=== PATIENT | female | born 1950 | race Caucasian/White ===

== ENCOUNTER 2018-05-15 18:19 | Emergency (ER) | payer MEDICARE, MEDICAID ==
[2018-05-15] MEDS ORDERED: ASPIRIN 81 MG TABLET, CHEWABLE PO ONE (19:30)
[2018-05-15] MEDS ORDERED: FUROSEMIDE INJ/PF 20 MG/2 ML SDV IV ONE (19:31)
--- NOTE | 2018-05-15 19:31 | ER Document Report ---
ED Medical Screen (RME) - General Chief Complaint: Cough Stated Complaint: COUGH Time Seen by Provider: 05/15/18 19:24 Notes: 68 years old female presents today with a day history of progressive increasing shortness of breath and coughing. Largely dry cough. Also noted swelling of the lower extremity. On examination having both inspiratory and expiratory Rales throughout the lung field particularly lower lung field. TRAVEL OUTSIDE OF THE [place] IN LAST 30 DAYS: No - Related Data Allergies/Adverse Reactions: amyl nitrite Allergy (Verified 08/17/15 22:48) Iodinated Contrast- Oral and IV Dye Allergy (Verified 08/17/15 22:48) sulfite Allergy (Verified 08/17/15 22:48) Past Medical History - Past Medical History Cardiac Medical History: Reports: Hx Congestive Heart Failure, Hx Heart Attack Pulmonary Medical History: Reports: Hx Asthma Renal/ Medical History: Denies: Hx Peritoneal Dialysis Musculoskeltal Medical History: Reports Hx Arthritis Past Surgical History: Reports: Hx Hysterectomy - Immunizations Hx Diphtheria, Pertussis, Tetanus Vaccination: Yes Physical Exam - Vital signs Vitals: Temp Pulse Resp BP Pulse Ox 98.3 F 66 16 135/69 H 92 05/15/18 18:57 05/15/18 18:57 05/15/18 18:57 05/15/18 18:57 05/15/18 18:57 Course - Vital Signs Vital signs: Temp Pulse Resp BP Pulse Ox 98.3 F 66 16 135/69 H 92 05/15/18 18:57 05/15/18 18:57 05/15/18 18:57 05/15/18 18:57 05/15/18 18:57
--- NOTE | 2018-05-15 20:20 | RADIOLOGY REPORT (SQ) ---
EXAM DESCRIPTION: XR CHEST 1 VIEW COMPLETED DATE/TME: 05/15/2018 19:30 CLINICAL HISTORY: 68 years, Female, Cough and congestion COMPARISON: X-ray chest 02/01/2016 NUMBER OF VIEWS: TECHNIQUE: LIMITATIONS: None. FINDINGS: No evidence of pulmonary infiltrate or pleural effusion. There is mild scarring/platelike atelectasis at the right lung base. The heart and mediastinum are unremarkable. Pulmonary vascularity appears normal. IMPRESSION: No acute finding. copyright 2010 [employer]- All Rights Reserved
[2018-05-15 20:36] LABS: ABSOLUTE LYMPHOCYTES (AUTO) 1.2 10^3/uL (0.5-4.7); ABSOLUTE MONOCYTES (AUTO) 0.8 10^3/uL (0.1-1.4); ABSOLUTE NEUT (AUTO) 3.3 10^3/uL (1.7-8.2); BASOPHILS % (AUTO) 0.6 % (0-2); EOSINOPHILS % (AUTO) 0.4 % (0-6); HEMATOCRIT 40.5 % (36.0-47.0); LYMPHOCYTES % (AUTO) 22.9 % (13-45); MEAN CORPUSCULAR HEMOGLOBIN 29.8 pg (27.0-33.4); MEAN CORPUSCULAR HGB CONC 34.5 g/dL (32.0-36.0); MEAN CORPUSCULAR VOLUME 86 fl (80-97); MONOCYTES % (AUTO) 14.5 % (3-13); PLATELET COUNT 239 10^3/uL (150-450); RED BLOOD COUNT 4.69 10^6/uL (3.72-5.28); SEGMENTED NEUTROPHILS % (AUTO) 61.6 % (42-78); TOTAL CELLS COUNTED % (AUTO) 100 %; WHITE BLOOD COUNT 5.4 10^3/uL (4.0-10.5)
[2018-05-15 20:54] LABS: ALANINE AMINOTRANSFERASE 84 U/L (9-52); ALBUMIN 4.3 g/dL (3.5-5.0); ALKALINE PHOSPHATASE 82 U/L (38-126); ANION GAP 12 (5-19); ASPARTATE AMINO TRANSFERASE 87 U/L (14-36); BILIRUBIN,DIRECT 0.5 mg/dL (0.0-0.4); BLOOD UREA NITROGEN 15 mg/dL (7-20); CALCIUM 9.2 mg/dL (8.4-10.2); CARBON DIOXIDE 28 mmol/L (22-30); CHLORIDE 106 mmol/L (98-107); CREATINE KINASE 78 U/L (30-135); GLUCOSE 90 mg/dL (75-110); POTASSIUM 4.7 mmol/L (3.6-5.0); SODIUM 145.6 mmol/L (137-145); TOTAL PROTEIN 7.8 g/dL (6.3-8.2)
[2018-05-15 21:05] LABS: CREATINE KINASE MB 1.05 ng/mL (<4.55)
[2018-05-15 21:07] LABS: TROPONIN I < 0.012 ng/mL
[2018-05-15] MEDS ORDERED: IPRATROPIUM/ALBUTEROL 0.5-2.5 MG/3 ML AMPUL NEB ONE (21:27)
[2018-05-15] MEDS ORDERED: METHYLPREDNISOLONE INJ 125 MG/2 ML SDV IV ONE (21:28)
[2018-05-15] MEDS ORDERED: BENZONATATE 100 MG CAPSULE PO ONE (21:28)
[2018-05-15 22:42] LABS: APPEARANCE,URINE SLIGHTLY-CLOUDY; BILIRUBIN,URINE NEGATIVE (NEGATIVE); COLOR,URINE YELLOW; GLUCOSE, URINE NEGATIVE (NEGATIVE); KETONES,URINE 20 mg/dL (NEGATIVE); LEUKOCYTE ESTERASE,URINE LARGE (NEGATIVE); NITRITE,URINE NEGATIVE (NEGATIVE); PROTEIN,URINE NEGATIVE (NEGATIVE); URINE SPECIFIC GRAVITY 1.013
[2018-05-15] MEDS ORDERED: ALBUTEROL SULFATE 0.083% NEB 2.5 MG/3 ML AMPUL NEB ONE (22:49)
[2018-05-15] MEDS ORDERED: DOXYCYCLINE HYCLATE 100 MG TABLET PO ONE (23:01)
[2018-05-15] MEDS ORDERED: ALBUTEROL SULFATE HFA (90 MCG/PUFF) 8 GM MDI (1 MDI/ER DISP) IH ONE (23:26)
[2018-05-16 01:02] VITALS: BP 111/63
--- NOTE | 2018-05-16 07:36 | EKG REPORT ---
SEVERITY:- DEFECTIVE ECG - BORDERLINE ST DEPRESSION, INFERIOR LEADS PROBABLE SINUS RHYTHM.BASELINE ARTIFACT.REPEAT EKG : Confirmed by: Katherine Hoang MD 16-May-2018 07:35:17
--- NOTE | 2018-05-18 07:52 | ER Document Report ---
Entered by GARCIA STONE SCRIBE 05/15/[id number] Acting as scribe for:LUISA HAWKISN MD ED General - General Chief Complaint: Cough Stated Complaint: COUGH Time Seen by Provider: 05/15/18 19:24 Mode of Arrival: Ambulatory Information source: Patient Notes: Patient is a 68-year-old female with CHF, COPD and a history of UT (1993) presents to the emergency to the emergency department complaining of a cough and shortness of breath. Patient states the symptoms were onset approximately 1 week ago and have been progressively worsening. She describes the cough as dry and states it has been constant ever since the onset. She also complains of nausea, vomiting and lower extremity swelling. Patient reports similar symptoms in September 2017 and states her heart stopped 3x. She reports she then drove herself to urgent care. TRAVEL OUTSIDE OF THE [place] IN LAST 30 DAYS: No - Related Data Allergies/Adverse Reactions: amyl nitrite Allergy (Verified 08/17/15 22:48) Iodinated Contrast- Oral and IV Dye Allergy (Verified 08/17/15 22:48) sulfite Allergy (Verified 08/17/15 22:48) Past Medical History - General Information source: Patient - Social History Smoking Status: Never Smoker Cigarette use (# per day): No Chew tobacco use (# tins/day): No Smoking Education Provided: No Frequency of alcohol use: None Family History: Reviewed & Not Pertinent Patient has suicidal ideation: No Patient has homicidal ideation: No - Past Medical History Cardiac Medical History: Reports: Hx Congestive Heart Failure, Hx Heart Attack - 1993 Pulmonary Medical History: Reports: Hx Asthma, Hx COPD Musculoskeletal Medical History: Reports Hx Arthritis Past Surgical History: Reports: Hx Hysterectomy - Immunizations Hx Diphtheria, Pertussis, Tetanus Vaccination: Yes Review of Systems - Review of Systems Constitutional: No symptoms reported EENT: No symptoms reported Cardiovascular: No symptoms reported Respiratory: See HPI, Cough, Short of breath Gastrointestinal: See HPI, Nausea, Vomiting Genitourinary: No symptoms reported Female Genitourinary: No symptoms reported Musculoskeletal: No symptoms reported Skin: No symptoms reported Hematologic/Lymphatic: No symptoms reported Neurological/Psychological: No symptoms reported -: Yes All other systems reviewed and negative Physical Exam - Vital signs Vitals: Temp Pulse Resp BP Pulse Ox 98.3 F 66 16 135/69 H 92 05/15/18 18:57 05/15/18 18:57 05/15/18 18:57 05/15/18 18:57 05/15/18 18:57 - Notes Notes: ENERAL: Alert, interacts well. No acute distress. HEAD: Normocephalic, atraumatic. EYES: Pupils equal, round, and reactive to light. Extraocular movements intact. ENT: Oral mucosa moist, tongue midline. NECK: Full range of motion. Supple. Trachea midline. LUNGS: Rhonchi and wheezes with cough. No respiratory distress. HEART: Regular rate and rhythm. No murmurs, gallops, or rubs. ABDOMEN: Obese. Soft, non-tender. Non-distended. Bowel sounds present in all 4 quadrants. EXTREMITIES: Moves all 4 extremities spontaneously. Trace peripheral edema to the BLE. NEUROLOGICAL: Alert and oriented x3. Normal speech. PSYCH: Normal affect, normal mood. SKIN: Warm, dry, normal turgor. No rashes or lesions noted. Course - Re-evaluation Re-evalutation: 05/15/18 22:24 The patient refused Solu-Medrol, stating that she was told to never take any steroids of any kind. She states that steroids caused her to have severe liver injury. 05/15/18 23:02 Patient states that her breathing does feel better after the nebulizer treatment. A second treatment has been ordered but has not been given yet. When I asked her about how it feels to take a deep breath, she states she cannot take a deep breath. That is not true, as I have had her take deep breaths and cough in order to hear her lung sounds more clearly. When I informed her that we would be able to send her home with an albuterol inhaler to continue helping her wheezing, she did not want to leave. She states she came by paramedics and does not not have a way to get home. 05/15/18 23:03 She will be discharged with prescription for doxycycline. Although she claims she has never smoked or lived with a smoker, she does really sound like a COPD patient. She also has a bad urine odor, and nitrite positive urine. - Vital Signs Vital signs: Temp Pulse Resp BP Pulse Ox 98.3 F 66 16 135/69 H 92 05/15/18 18:57 05/15/18 18:57 05/15/18 18:57 05/15/18 18:57 05/15/18 18:57 - Laboratory Result Diagrams: 05/15/18 20:22 05/15/18 20:22 Laboratory results interpreted by me: 05/15/18 05/15/18 05/15/18 20:22 20:22 22:24 Monocytes % 14.5 H Sodium 145.6 H Direct Bilirubin 0.5 H AST 87 H ALT 84 H Urine Ketones 20 H Urine Blood SMALL H Urine Urobilinogen 2.0 H Ur Leukocyte Esterase LARGE H - Diagnostic Test Radiology reviewed: Image reviewed, Reports reviewed - CXR-no infiltrates. Scarring or platelike atelectasis in the right base. Normal pulmonary vasculature. - EKG Interpretation by Me EKG shows normal: Sinus rhythm, [place], Intervals, QRS Complexes, ST-T Waves Rate: Normal - 66 Rhythm: NSR Discharge - Discharge Clinical Impression: Acute bronchitis with bronchospasm Condition: Stable Disposition: HOME, SELF-CARE Additional Instructions: Bronchitis with Bronchospasm (Wheezing) You have bronchitis with bronchospasm (wheezing). Sometimes people develop wheezing with a chest cold. This occurs either because of an underlying tendency toward asthma or because the virus itself irritates the bronchial tubes. This irritation causes cough, shortness of breath, and wheezing. Emergency treatment of bronchospasm may include adrenaline shots or bronchodilator aerosol. You may feel lightheaded and have a rapid pulse for an hour or two. Rest and get plenty of fluids. At home, we'll treat you with a bronchodilator inhaler. Corticosteroids may be required for some patients. Until you recover, avoid chemical fumes, dusts, pollens, and exercising in very cold or dry air. If you smoke, stop now! Most cases of bronchitis get better without antibiotics. We prescribe antibiotics when we believe bacteria are damaging your airways, or if there's high risk the bronchitis will worsen into pneumonia. Increase your fluid intake. A cool mist humidifier may make your lungs more comfortable. An expectorant (cough medicine that loosens phlegm) can help. Repeated episodes of bronchitis and bronchospasm may result in lung damage -- for example, chronic bronchitis, recurrent pneumonias, or emphysema. If you develop a fever, increased wheezing, chest pain, or severe shortness of breath, you should contact the doctor immediately. Use the inhaler-2 puffs every 4 hours to help with your wheezing. Take the doxycycline antibiotic as prescribed. Try Robitussin-DM or Delsym DM to help control your cough. Be sure to drink plenty of water. Follow-up with your primary care provider or a local medical doctor if not improving. RETURN TO THE EMERGENCY ROOM IF ANY NEW OR WORSENING SYMPTOMS. Prescriptions: Doxycycline Hyclate 100 mg PO BID #14 tablet.dr Abbasi Attestation: 05/15/18 22:31 I personally performed the services described in the documentation, reviewed and edited the documentation which was dictated to the pedroibe in my presence, and it accurately records my words and actions. I personally performed the services described in the documentation, reviewed and edited the documentation which was dictated to the scribe in my presence, and it accurately records my words and actions.
== END 2018-05-16 01:01 | disposition home or self-care (01) ==
LOC: ER 18:19
DX: J20.9 Acute bronchitis, unspecified (principal); J44.0 Chronic obstructive pulmonary disease with (acute) lower respiratory infection; R05 Cough; R06.02 Shortness of breath; R11.2 Nausea with vomiting, unspecified; R39.89 Other symptoms and signs involving the genitourinary system; R60.0 Localized edema; I25.2 Old myocardial infarction; Z88.8 Allergy status to other drugs, medicaments and biological substances; Z91.041 Radiographic dye allergy status
CPT/HCPCS: 93005; 94640 ×2; 99284; 96374; 36415; 87086; 82553; 82550; 85025; 80053; 81001; 84484; 83880; 71045; 93010; A9270 ×5; J1940; J3490; J7620

== ENCOUNTER 2019-02-15 15:08 | Emergency (ER) | payer MEDICARE, MEDICAID ==
[2019-02-15 15:51] VITALS: BP 150/71
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
== END 2019-02-15 17:01 | disposition home or self-care (01) ==
LOC: ER 15:08
DX: Z04.89 Encounter for examination and observation for other specified reasons (principal); I10 Essential (primary) hypertension; J44.9 Chronic obstructive pulmonary disease, unspecified
CPT/HCPCS: 99282

== ENCOUNTER 2019-10-11 13:05 | Emergency (ER) | payer MEDICARE, MEDICAID ==
[2019-10-11] MEDS ORDERED: NORMAL SALINE 1000 ML 1,000 ML IV PRN (13:16)
--- NOTE | 2019-10-11 13:16 | ER Document Report ---
ED Medical Screen (RME) - General Chief Complaint: Problem with Urinary Catheter Stated Complaint: BLEEDING THROUGH CATH Time Seen by Provider: 10/11/19 13:15 Mode of Arrival: Ambulatory Notes: 69-year-old female presents to the emergency room today stating she has had an indwelling urinary catheter since June 11. They have changed her bag at the [facility] however they had not replaced the catheter she has had some nausea intermittent fever she has blood coming from the catheter at this point of time. TRAVEL OUTSIDE OF THE [place] IN LAST 30 DAYS: No - Related Data Allergies/Adverse Reactions: amyl nitrite Allergy (Verified 02/15/19 16:42) Iodinated Contrast Media Allergy (Verified 02/15/19 16:42) sulfite Allergy (Verified 02/15/19 16:42) Past Medical History - Past Medical History Cardiac Medical History: Reports: Hx Congestive Heart Failure, Hx Heart Attack - 1993 Pulmonary Medical History: Reports: Hx Asthma, Hx COPD Renal/ Medical History: Denies: Hx Peritoneal Dialysis Musculoskeltal Medical History: Reports Hx Arthritis Past Surgical History: Reports: Hx Hysterectomy - Immunizations Hx Diphtheria, Pertussis, Tetanus Vaccination: Yes
--- NOTE | 2019-10-11 18:53 | ER Document Report ---
ED General - General Chief Complaint: Problem with Urinary Catheter Stated Complaint: BLEEDING THROUGH CATH Time Seen by Provider: 10/11/19 13:15 Mode of Arrival: Medic Information source: Patient Notes: Patient is a 69-year-old female presenting to the emergency department chief complaint of blood in her urinary catheter. Patient states is been ongoing for the past 2 to 3 days. Patient states that she had a stroke 11 June this year and had been in a rehab facility until October 08. She states at time of discharge she noticed when she got home that she had a little bit of blood in her urine and it is progressively worsened. Patient states that she is not really sure why she has the Ball catheter but is following directions of the physician. Patient denies any other complaints at this time. TRAVEL OUTSIDE OF THE [place] IN LAST 30 DAYS: No - HPI Onset: Last week Onset/Duration: Gradual, Worse Quality of pain: No pain Severity: None Associated symptoms: denies: Diarrhea, Fever, Nausea, Vomiting, Shortness of breath, Sweating, Weakness Exacerbated by: Denies Relieved by: Denies Similar symptoms previously: No Recently seen / treated by doctor: Yes - Related Data Allergies/Adverse Reactions: amyl nitrite Allergy (Verified 10/11/19 13:15) Iodinated Contrast Media Allergy (Verified 10/11/19 13:15) sulfite Allergy (Verified 10/11/19 13:15) Past Medical History - General Information source: Patient - Social History Smoking Status: Never Smoker Chew tobacco use (# tins/day): No Frequency of alcohol use: None Drug Abuse: None Lives with: Alone Family History: Reviewed & Not Pertinent Patient has suicidal ideation: No Patient has homicidal ideation: No - Past Medical History Cardiac Medical History: Reports: Hx Congestive Heart Failure, Hx Heart Attack - 1993 Pulmonary Medical History: Reports: Hx Asthma, Hx COPD Neurological Medical History: Reports: Hx Cerebrovascular Accident Renal/ Medical History: Denies: Hx Peritoneal Dialysis Musculoskeletal Medical History: Reports Hx Arthritis Past Surgical History: Reports: Hx Hysterectomy - Immunizations Hx Diphtheria, Pertussis, Tetanus Vaccination: Yes Review of Systems - Review of Systems Constitutional: No symptoms reported EENT: No symptoms reported Cardiovascular: No symptoms reported Respiratory: No symptoms reported Gastrointestinal: No symptoms reported Genitourinary: See HPI, Hematuria Female Genitourinary: No symptoms reported Musculoskeletal: No symptoms reported Skin: No symptoms reported Hematologic/Lymphatic: No symptoms reported Neurological/Psychological: No symptoms reported Physical Exam - Notes Notes: PHYSICAL EXAMINATION: GENERAL: Well-appearing, well-nourished and in no acute distress. HEAD: Atraumatic, normocephalic. EYES: Pupils equal round and reactive to light, extraocular movements intact, sclera anicteric, conjunctiva are normal. ENT: nares patent, oropharynx clear without exudates. Moist mucous membranes. NECK: Normal range of motion, supple without lymphadenopathy, no appreciable JVD LUNGS: Lungs clear to auscultation bilaterally and equal. No wheezes rales or rhonchi. HEART: Regular rate and rhythm without murmurs ABDOMEN: Soft, nontender, normal bowel sounds. No guarding, no rebound. No masses appreciated. EXTREMITIES: Active full range of motion, no pitting or edema. No cyanosis. 2+ pulses x4 NEUROLOGICAL: No focal neurological deficits. Moves all extremities spontaneously and on command. SKIN: Warm, Dry, and intact. Normal turgor, no rashes or lesions noted. Course - Re-evaluation Re-evalutation: 10/11/19 20:38 Ball catheter has been changed by nursing staff urine is now being sent to the lab at this time. 10/11/19 21:36 Ball catheter has been changed by nursing staff. Urinalysis demonstrates an obvious urinary tract infection with hematuria. Patient will be given Macrobid initial dose in the emergency department and a prescription for same and recommended to follow-up with her primary care provider. - Laboratory Laboratory results interpreted by me: 10/11/19 20:40 Urine Protein 100 H Urine Blood LARGE H Urine Nitrite POSITIVE H Ur Leukocyte Esterase LARGE H Urine Ascorbic Acid 40 H Discharge - Discharge Clinical Impression: Ball catheter present UTI (urinary tract infection) Qualifiers: Urinary tract infection type: site unspecified Hematuria presence: with hematuria Qualified Code(s): N39.0 - Urinary tract infection, site not specified; R31.9 - Hematuria, unspecified Condition: Stable Disposition: HOME, SELF-CARE Instructions: Nitrofurantoin ([facility]), Urinary Tract Infection ([facility]) Prescriptions: Nitrofurantoin Monohyd/M-Cryst [Macrobid 100 mg Capsule] 100 mg PO BID #20 cap
[2019-10-11 21:19] LABS: APPEARANCE,URINE CLOUDY; BILIRUBIN,URINE NEGATIVE (NEGATIVE); COLOR,URINE AMBER; GLUCOSE, URINE NEGATIVE (NEGATIVE); KETONES,URINE NEGATIVE (NEGATIVE); LEUKOCYTE ESTERASE,URINE LARGE (NEGATIVE); NITRITE,URINE POSITIVE (NEGATIVE); PROTEIN,URINE 100 mg/dL (NEGATIVE); URINE SPECIFIC GRAVITY 1.031; UROBILINOGEN,URINE NEGATIVE mg/dL (<2.0)
[2019-10-11] MEDS ORDERED: NITROFURANTOIN MONOHYD/M-CRYST 100 MG CAPSULE PO ONE (21:36)
[2019-10-11 22:08] VITALS: BP 133/63
== END 2019-10-11 22:21 | disposition home or self-care (01) ==
LOC: ER 13:05
DX: T85.9XXA Unspecified complication of internal prosthetic device, implant and graft, initial encounter (principal); N39.0 Urinary tract infection, site not specified; R31.9 Hematuria, unspecified; Z88.8 Allergy status to other drugs, medicaments and biological substances; I50.9 Heart failure, unspecified; I25.2 Old myocardial infarction; J44.9 Chronic obstructive pulmonary disease, unspecified
CPT/HCPCS: 99283; 51702; 81001; A9270; J8499

== ENCOUNTER 2019-10-16 13:25 | Emergency (ER) | payer MEDICARE, MEDICAID ==
--- NOTE | 2019-10-16 13:54 | ER Document Report ---
ED Medical Screen (RME) - General Chief Complaint: Problem with Urinary Catheter Stated Complaint: CATHETER ISSUE Time Seen by Provider: 10/16/19 13:36 TRAVEL OUTSIDE OF THE [place] IN LAST 30 DAYS: No - HPI Notes: 10/16/19 13:51 69-year-old female presents to the emergency room for evaluation of her Ball catheter that she had replaced on October 10 for the first time since it was placed in mid June after having a CVA due to being in a rehab facility for complaints of leaking around the Ball catheter and also she has not taking the oral antibiotics that was prescribed for her for a UTI on October 10. Patient says due to the COVID pandemic, she was not able to get back to the facility. Denies any fevers chills, chest pain shortness of breath. Patient has an untreated UTI with leaking around her Ball catheter. I have greeted and performed a rapid initial assessment of this patient. A comprehensive ED assessment and evaluation of the patient, analysis of test results and completion of the medical decision making process will be conducted by additional ED providers. PHYSICAL EXAMINATION: GENERAL: Well-appearing, well-nourished and in no acute distress. CV: s1, s2 regular LUNGS: No respiratory distress - Related Data Allergies/Adverse Reactions: amyl nitrite Allergy (Verified 10/11/19 13:15) Iodinated Contrast Media Allergy (Verified 10/11/19 13:15) sulfite Allergy (Verified 10/11/19 13:15) Past Medical History - Past Medical History Cardiac Medical History: Reports: Hx Congestive Heart Failure, Hx Heart Attack - 1993 Pulmonary Medical History: Reports: Hx Asthma, Hx COPD Neurological Medical History: Reports: Hx Cerebrovascular Accident Renal/ Medical History: Denies: Hx Peritoneal Dialysis Musculoskeltal Medical History: Reports Hx Arthritis Past Surgical History: Reports: Hx Hysterectomy - Immunizations Hx Diphtheria, Pertussis, Tetanus Vaccination: Yes Physical Exam - Vital signs Vitals: Temp 98.6 F 10/16/19 13:31 Course - Vital Signs Vital signs: Temp Pulse Resp BP Pulse Ox 98.6 F 82 12 111/78 96 10/16/19 13:32 10/16/19 13:32 10/16/19 13:32 10/16/19 13:32 10/16/19 13:32
[2019-10-16 14:35] LABS: APPEARANCE,URINE CLOUDY; BILIRUBIN,URINE NEGATIVE (NEGATIVE); COLOR,URINE DARK YELLOW; GLUCOSE, URINE NEGATIVE (NEGATIVE); KETONES,URINE TRACE mg/dL (NEGATIVE); LEUKOCYTE ESTERASE,URINE MODERATE (NEGATIVE); NITRITE,URINE NEGATIVE (NEGATIVE); PROTEIN,URINE >=500 mg/dL (NEGATIVE); URIC ACID CRYSTALS,URINE MANY /HPF; URINE SPECIFIC GRAVITY 1.035; UROBILINOGEN,URINE NEGATIVE mg/dL (<2.0)
[2019-10-16 14:35] LABS: ABSOLUTE BASOPHILS # (AUTO) 0.1 10^3/uL (0.0-0.2); ABSOLUTE EOSINOPHILS # (AUTO) 0.2 10^3/uL (0.0-0.6); ABSOLUTE LYMPHOCYTES (AUTO) 1.8 10^3/uL (0.5-4.7); ABSOLUTE MONOCYTES (AUTO) 0.4 10^3/uL (0.1-1.4); ABSOLUTE NEUT (AUTO) 3.2 10^3/uL (1.7-8.2); BASOPHILS % (AUTO) 1.4 % (0-2); EOSINOPHILS % (AUTO) 4.4 % (0-6); HEMATOCRIT 42.8 % (36.0-47.0); HEMOGLOBIN 14.6 g/dL (12.0-15.5); LYMPHOCYTES % (AUTO) 30.6 % (13-45); MEAN CORPUSCULAR HEMOGLOBIN 30.6 pg (27.0-33.4); MEAN CORPUSCULAR HGB CONC 34.2 g/dL (32.0-36.0); MEAN CORPUSCULAR VOLUME 89 fl (80-97); MONOCYTES % (AUTO) 7.5 % (3-13); PLATELET COUNT 264 10^3/uL (150-450); RED BLOOD COUNT 4.79 10^6/uL (3.72-5.28); RED CELL DISTRIBUTION WIDTH 14.7 % (11.5-14.0); SEGMENTED NEUTROPHILS % (AUTO) 56.1 % (42-78); TOTAL CELLS COUNTED % (AUTO) 100 %; WHITE BLOOD COUNT 5.7 10^3/uL (4.0-10.5)
[2019-10-16 14:58] LABS: ALBUMIN 4.8 g/dL (3.5-5.0); ALKALINE PHOSPHATASE 106 U/L (38-126); ANION GAP 9 (5-19); ASPARTATE AMINO TRANSFERASE 32 U/L (14-36); BILIRUBIN,TOTAL 0.8 mg/dL (0.2-1.3); BLOOD UREA NITROGEN 24 mg/dL (7-20); CALCIUM 10.4 mg/dL (8.4-10.2); CARBON DIOXIDE 27 mmol/L (22-30); CHLORIDE 114 mmol/L (98-107); GLUCOSE 110 mg/dL (75-110); POTASSIUM 4.1 mmol/L (3.6-5.0); TOTAL PROTEIN 8.1 g/dL (6.3-8.2)
--- NOTE | 2019-10-16 14:58 | RADIOLOGY REPORT (SQ) ---
EXAM DESCRIPTION: U/S RETROPERITON (RENAL/AORTA) IMAGES COMPLETED DATE/TIME: 10/16/2019 2:48 pm REASON FOR STUDY: untreated uti, mason x 4 months, didnt take abx COMPARISON: None. TECHNIQUE: Dynamic and static grayscale images acquired of the kidneys and bladder and recorded on P ACS. Additional selected color Doppler and spectral images recorded. LIMITATIONS: None. FINDINGS: RIGHT KIDNEY: Normal size measuring 10.0 cm. Normal echogenicity. No solid or suspicious m asses. Lower pole cyst measuring 2.7 cm. No hydronephrosis. No calcifications. LEFT KIDNEY: Normal size measuring 10.7 cm. Normal echogenicity. No solid or suspicious masses. Low er pole cyst measuring 1.8 cm. No hydronephrosis. No calcifications. BLADDER: Decompressed urinary bladder with catheter. OTHER FINDINGS: No other significant finding. IMPRESSION: No hydronephrosis. Decompressed urinary bladder with Mason catheter. TECHNICAL DOCUMENTATION: JOB ID: [id number] [employer]- All Rights Reserved Reading location - IP/workstation name: [email or web address]
[2019-10-16 17:58] VITALS: BP 118/69
--- NOTE | 2019-10-16 18:16 | ER Document Report ---
ED General - General Chief Complaint: Problem with Urinary Catheter Stated Complaint: CATHETER ISSUE Time Seen by Provider: 10/16/19 13:36 Notes: 69 year old female presents emergency department complaining of intermittent leaking from the catheter since she was started on an antibiotic on the . Patient states that she took 1 dose of her Macrobid and immediately developed leakage from the catheter as well as pain around her bladder with her rectum so she stopped taking the antibiotic that she had been prescribed 2 days before that for hematuria and UTI. Patient continues to have pain and leakage. Denies any fevers, complains of lower abdominal pain and pressure. States that she has a catheter due to stroke as well as prolapsed bladder that requires frequent self-catheterization. TRAVEL OUTSIDE OF THE [place] IN LAST 30 DAYS: No - Related Data Allergies/Adverse Reactions: amyl nitrite Allergy (Verified 10/16/19 13:52) Iodinated Contrast Media Allergy (Verified 10/16/19 13:52) sulfite Allergy (Verified 10/16/19 13:52) Past Medical History - General Information source: Patient - Social History Smoking Status: Former Smoker Frequency of alcohol use: None Drug Abuse: None Family History: Reviewed & Not Pertinent Patient has homicidal ideation: No - Past Medical History Cardiac Medical History: Reports: Hx Congestive Heart Failure, Hx Heart Attack - 1993 Pulmonary Medical History: Reports: Hx Asthma, Hx COPD Neurological Medical History: Reports: Hx Cerebrovascular Accident Renal/ Medical History: Denies: Hx Peritoneal Dialysis Musculoskeletal Medical History: Reports Hx Arthritis Past Surgical History: Reports: Hx Hysterectomy - Immunizations Hx Diphtheria, Pertussis, Tetanus Vaccination: Yes Review of Systems - Review of Systems Constitutional: No symptoms reported Gastrointestinal: See HPI Genitourinary: See HPI -: Yes All other systems reviewed and negative Physical Exam - Vital signs Vitals: Temp 98.6 F 10/16/19 13:31 Interpretation: Normal - Notes Notes: GENERAL: Alert, interacts well. No acute distress. HEAD: Normocephalic, atraumatic EYES: Pupils equal, round and reactive to light, extraocular movements intact. ENT: Oral mucosa moist, tongue midline. NECK: Full range of motion, supple, trachea midline. LUNGS: Clear to auscultation bilaterally, no wheezes, rales or rhonchi, no respiratory distress. HEART: Regular rate and rhythm, no murmurs, gallops, rubs. ABDOMEN: Soft, nontender, nondistended, bowel sounds present in all 4 quadrants. Bladder is decompressed, Ball catheter in good position. EXTREMITIES: Moves all 4 extremities spontaneously, no edema, radial and dorsalis pedis pulses 2/4 bilaterally. No cyanosis. NEUROLOGICAL: Alert and oriented x3, normal speech. PSYCH: Normal mood, normal affect. SKIN: Warm, Dry, normal turgor. Course - Re-evaluation Re-evalutation: 10/16/19 18:13 CBC unremarkable, CMP shows hyponatremia with a sodium of 149.5, BUN slightly bumped 24, calcium mildly elevated at 10.4, otherwise unremarkable, urinalysis shows trace ketones, large blood, moderate leukocyte esterase. 85 WBCs and greater than 182 leukocyte esterase. Renal Ultrasound 10/16/19 14:05 IMPRESSION: No hydronephrosis. Decompressed urinary bladder with Ball catheter. No evidence of obstructing stone on ultrasound. Patient will have catheter replaced, the changed from the Macrobid which she feels caused her pain to a different antibiotic. Patient will be started on a Bactrim, urine will be sent for culture, no culture from last visit is available in the computer. Discharged to home with strong recommendations to follow-up with urology as an outpatient as it will be important to balance whether she truly needs an indwelling catheter due to her prolapsed bladder or if she would do better without an indwelling catheter given her recurrent urinary tract infections. - Vital Signs Vital signs: Temp Pulse Resp BP Pulse Ox 97.2 F 60 14 118/69 99 10/16/19 17:55 10/16/19 17:55 10/16/19 17:55 10/16/19 17:55 10/16/19 17:55 - Laboratory Result Diagrams: 10/16/19 14:17 10/16/19 14:17 Laboratory results interpreted by me: 10/16/19 10/16/19 10/16/19 14:11 14:17 14:17 RDW 14.7 H Sodium 149.5 H Chloride 114 H BUN 24 H Calcium 10.4 H Urine Protein >=500 H Urine Ketones TRACE H Urine Blood LARGE H Ur Leukocyte Esterase MODERATE H Urine Ascorbic Acid 40 H Discharge - Discharge Clinical Impression: UTI (urinary tract infection) Qualifiers: Urinary tract infection type: catheter-associated UTI Indwelling urinary catheter type: indwelling urethral catheter Encounter type: initial encounter Qualified Code(s): T83.511A - Infection and inflammatory reaction due to indwelling urethral catheter, initial encounter; N39.0 - Urinary tract infection, site not specified Condition: Stable Disposition: HOME, SELF-CARE Additional Instructions: Please drink plenty fluids. Take antibiotics as directed until they are gone. Do not stop them early. We have changed your catheter today and made it 1 size bigger in order to try and decrease the leakage. Please follow-up as an outpatient with a urologist to discuss whether they would recommend continuing to use an indwelling Ball catheter given your prolapsed bladder or if they would prefer you intermittently self cath due to recurrent urinary tract infections. Prescriptions: Sulfamethoxazole/Trimethoprim [Bactrim Ds Tablet] 1 each PO BID #14 tablet Referrals: ERENDIRA GAMA MD [NO LOCAL MD] - Follow up as needed
== END 2019-10-16 19:00 | disposition home or self-care (01) ==
LOC: ER 13:25
DX: T83.511A Infection and inflammatory reaction due to indwelling urethral catheter, initial encounter (principal); N39.0 Urinary tract infection, site not specified; Z87.891 Personal history of nicotine dependence; Z88.2 Allergy status to sulfonamides; I50.9 Heart failure, unspecified; I25.2 Old myocardial infarction; J44.9 Chronic obstructive pulmonary disease, unspecified
CPT/HCPCS: 36415; 51702; 76770; 80053; 81001; 83605; 85025; 87086; 87088; 87186; 99284

== ENCOUNTER 2019-10-30 13:42 | Emergency (ER) | payer MEDICARE, MEDICAID ==
--- NOTE | 2019-10-30 14:44 | ER Document Report ---
HPI - HPI Patient complains to provider of: folley leak Time Seen by Provider: 10/30/19 14:41 Pain Level: Denies Context: This is a 69-year-old female presented to the emergency room today simply because her Ball bag is leaking there is not a problem with the tube there is not a problem with output there is a problem with the actual bag itself which is leaking. She denies chest pain shortness of breath exertional chest pain exertional shortness of breath fever nausea or vomiting. Associated Symptoms: None Exacerbated by: Denies - REPRODUCTIVE Reproductive: DENIES: : Past Medical History - General Information source: Patient - Social History Smoking Status: Never Smoker Chew tobacco use (# tins/day): No Frequency of alcohol use: None Drug Abuse: None Family History: Reviewed & Not Pertinent Patient has homicidal ideation: No - Past Medical History Cardiac Medical History: Reports: Hx Congestive Heart Failure, Hx Heart Attack - 1993 Pulmonary Medical History: Reports: Hx Asthma, Hx COPD Neurological Medical History: Reports: Hx Cerebrovascular Accident Renal/ Medical History: Denies: Hx Peritoneal Dialysis Musculoskeletal Medical History: Reports Hx Arthritis Past Surgical History: Reports: Hx Hysterectomy - Immunizations Hx Diphtheria, Pertussis, Tetanus Vaccination: Yes Vertical Provider Document - CONSTITUTIONAL Agree With Documented VS: Yes - INFECTION CONTROL TRAVEL OUTSIDE OF THE [place] IN LAST 30 DAYS: No - HEENT HEENT: Atraumatic, PERRLA - NECK Neck: Normal Inspection - RESPIRATORY Respiratory: Rhonchi - CARDIOVASCULAR Cardiovascular: Regular Rate - GI/ABDOMEN Gastrointestinal: Abdomen Soft, Abdomen Non-Tender - REPRODUCTIVE Female Genitalia: Normal Inspection - BACK Back: Normal Inspection - MUSCULOSKELETAL/EXTREMETIES Musculoskeletal/Extremeties: MAEW - NEURO Level of Consciousness: Awake, Alert Motor/Sensory: No Motor Deficit - DERM Integumentary: Warm Course - Re-evaluation Re-evalutation: 10/30/19 14:43 Ball catheter was changed per her request. - Vital Signs Vital signs: Temp Pulse Resp BP Pulse Ox 98.5 F 70 18 129/72 H 96 10/30/19 13:52 10/30/19 13:52 10/30/19 13:52 10/30/19 13:52 10/30/19 13:52 Discharge - Discharge Clinical Impression: Urinary incontinence Qualifiers: Urinary Incontinence type: mixed stress and urge incontinence Qualified Code(s): N39.46 - Mixed incontinence Condition: Good Disposition: HOME, SELF-CARE Additional Instructions: Must follow-up with PMD in 3 to 5 days. My standard discharge.
[2019-10-30 15:03] VITALS: BP 126/68
== END 2019-10-30 15:02 | disposition home or self-care (01) ==
LOC: ER 13:42
DX: T85.9XXA Unspecified complication of internal prosthetic device, implant and graft, initial encounter (principal); I50.9 Heart failure, unspecified; I25.2 Old myocardial infarction; I11.0 Hypertensive heart disease with heart failure; J44.9 Chronic obstructive pulmonary disease, unspecified
CPT/HCPCS: 99283

== ENCOUNTER 2019-11-16 18:48 | Emergency (ER) | payer MEDICARE, MEDICAID ==
[2019-11-16 18:54] VITALS: BP 127/65
--- NOTE | 2019-11-16 19:04 | ER Document Report ---
HPI - HPI Patient complains to provider of: mason catheter change Time Seen by Provider: 11/16/19 18:58 Onset: Other - She has had a catheter since June 11 Quality of pain: No pain Severity: None Pain Level: Denies Context: 69-year-old female presents to ED for change of her catheter. She states she had a stroke on June [id number] and she has had a catheter since then. She states she has been infrequently to have the bags changed she has not had the Mason catheter changed since October 15. We will change that today as well as the bag. She states she is not able to use the leg bag because it just does not work she needs the long bedside drainage bag. Associated Symptoms: None Exacerbated by: Denies Relieved by: Denies Similar symptoms previously: Yes Recently seen / treated by doctor: Yes - ROS ROS below otherwise negative: Yes - CONSTITUTIONAL Constitutional: DENIES: Fever, Chills - EENT EENT: DENIES: Sore Throat, Ear Pain, Nasal Drainage-Clear, Nasal Drainage- Purulent, Congestion, Eye problems - NEURO Neurology: DENIES: Headache, Weakness, Vision blurred, Dizzinesss / Vertigo - CARDIOVASCULAR Cardiovascular: DENIES: Chest pain - RESPIRATORY Respiratory: DENIES: Trouble Breathing, Coughing - GASTROINTESTINAL Gastrointestinal: DENIES: Abdominal Pain, Nausea, Patient vomiting, Diarrhea, Constipation, Black / Bloody Stools - URINARY Urinary: DENIES: Dysuria, Urgency, Frequency Notes: Patient has had a Mason catheter since 2019. She has a urology appointment on November 24 - REPRODUCTIVE Reproductive: DENIES: :, Postmenopausal, Abnormal bleeding / discharge - MUSCULOSKELETAL Musculoskeletal: DENIES: Extremity pain, Back Pain, Neck Pain, Swelling - DERM Skin Color: Normal Skin Problems: None Past Medical History - General Information source: Patient - Social History Smoking Status: Never Smoker Frequency of alcohol use: None Drug Abuse: None Family History: Reviewed & Not Pertinent Patient has suicidal ideation: No Patient has homicidal ideation: No - Past Medical History Cardiac Medical History: Reports: Hx Congestive Heart Failure, Hx Heart Attack - 1993, Hx Hypercholesterolemia, Hx Hypertension Pulmonary Medical History: Reports: Hx Asthma, Hx COPD EENT Medical History: Reports: None Neurological Medical History: Reports: Hx Cerebrovascular Accident Endocrine Medical History: Reports: None Renal/ Medical History: Reports: None GI Medical History: Reports: Hx Gastroesophageal Reflux Disease, Hx Colonoscopy Musculoskeletal Medical History: Reports Hx Arthritis, Reports Hx Musculoskeletal Trauma Skin Medical History: Reports None Psychiatric Medical History: Reports: None Traumatic Medical History: Reports: Hx Fractures - Left forearm Infectious Medical History: Reports: None Past Surgical History: Reports: Hx Adenoidectomy, Hx Breast Surgery - Lumpectomy right breast, Hx Hysterectomy, Hx Oral Surgery - Gervais teeth, Hx Tonsillectomy - Immunizations Hx Diphtheria, Pertussis, Tetanus Vaccination: Yes Vertical Provider Document - CONSTITUTIONAL Agree With Documented VS: Yes Exam Limitations: No Limitations General Appearance: WD/WN, No Apparent Distress - INFECTION CONTROL TRAVEL OUTSIDE OF THE [place] IN LAST 30 DAYS: No - HEENT HEENT: Atraumatic, Normal ENT Exam, Normocephalic, PERRLA - NECK Neck: Normal Inspection - RESPIRATORY Respiratory: Breath Sounds Normal - CARDIOVASCULAR Cardiovascular: Regular Rate, Regular Rhythm, No Murmur - GI/ABDOMEN Gastrointestinal: Abdomen Soft, Abdomen Non-Tender, No Organomegaly, Normal Bowel Sounds - BACK Back: Normal Inspection, Abnormal Inspection - MUSCULOSKELETAL/EXTREMETIES Musculoskeletal/Extremeties: MAEW, FROM, Non-Tender - NEURO Level of Consciousness: Awake, Alert, Appropriate Motor/Sensory: No Motor Deficit, No Sensory Deficit, No Pronator Drift Deep Tendon Reflexes: 2+ - DERM Integumentary: Warm, Dry, No Rash Course - Re-evaluation Re-evalutation: 11/16/19 22:10 The catheter was changed. Patient tolerated well. Patient was discharged home and instructed to keep appointment with urologist as scheduled. - Vital Signs Vital signs: Temp Pulse Resp BP Pulse Ox 97.6 F 92 16 127/65 H 99 11/16/19 18:53 11/16/19 18:53 11/16/19 18:53 11/16/19 18:53 11/16/19 18:53 Discharge - Discharge Clinical Impression: Urinary catheter (Mason) change required Condition: Stable Disposition: HOME, SELF-CARE Additional Instructions: Mason Catheter Care Tube Position: Keep the catheter connected to the drainage tubing at all times. Avoid pulling on the catheter. Keep the drainage tube taped to the mid-thigh, on top of your leg (not underneath it). Be sure there are no kinks or loops in the tube. Keep the drainage bag below the bladder. When in bed, the drainage bag should hang below the abdomen but should not lie on the floor. The drainage bag has hooks at the top so it can be hung on a chair or bed. Daily Cleaning: Wash your hands with soap and water before and after caring for your catheter. Twice a day, clean yourself where the catheter goes into the urethra. Use a warm, soapy wash cloth to clean around the urethral opening and the first few inches of the catheter. Females should wash from front to back to decrease the risk of infection from fecal material. After washing with soap, rinse the area with water. Do not put powder around the catheter. Apply ointment only if instructed by your doctor or nurse. Follow up if you develop fever or chills, flank or abdominal pain, blood in the urine, or if urine is not draining into the catheter. FOLLOW-UP CARE: If you have been referred to a physician for follow-up care, call the physicians office for an appointment as you were instructed or within the next two days. If you experience worsening or a significant change in your symptoms, notify the physician immediately or return to the Emergency Department at any time for re-evaluation. Keep appointment on November 24 with your urologist Forms: Elevated Blood Pressure
== END 2019-11-16 19:30 | disposition home or self-care (01) ==
LOC: ER 18:48
DX: Z46.6 Encounter for fitting and adjustment of urinary device (principal); I50.9 Heart failure, unspecified; I25.2 Old myocardial infarction; I11.0 Hypertensive heart disease with heart failure; J44.9 Chronic obstructive pulmonary disease, unspecified
CPT/HCPCS: 51702; 99283

== ENCOUNTER 2020-03-28 21:51 | Emergency (ER) | payer MEDICARE, MEDICAID ==
--- NOTE | 2020-03-28 22:16 | ER Document Report ---
ED Medical Screen (RME) - General Chief Complaint: Headache Stated Complaint: GERD/FEELING UNEASY Time Seen by Provider: 03/28/20 22:09 Mode of Arrival: Wheelchair Information source: Patient Notes: HPI; 69-year-old female brought to emergency room by EMS for dizziness and chest pressure for the past 2 days. States she feels like there is a lot of "pressure" in both her head and her chest. She denies any head trauma or head injury. Complains of nausea but no vomiting. States she did have a stroke back in June and was in rehab but is now living at home. Chest pressure is midsternal. States she did took 4 baby aspirin prior to EMS coming to her house. She denies any COVID-19 exposure. PE: Alert and oriented x3. Lungs: Clear to auscultation without rales, rhonchi, wheezes. Heart: Regular rate rhythm without murmurs, rubs, gallops. I have greeted and performed a rapid initial assessment of this patient. A comprehensive ED assessment and evaluation of the patient, analysis of test results and completion of the medical decision making process will be conducted by additional ED providers. I have specifically instructed the patient or family members with the patient to immediately return to any nursing staff should anything change in the patient's condition or with their chief complaint. TRAVEL OUTSIDE OF THE [place] IN LAST 30 DAYS: No - Related Data Allergies/Adverse Reactions: amyl nitrite Allergy (Verified 10/16/19 13:52) Iodinated Contrast Media Allergy (Verified 10/16/19 13:52) sulfite Allergy (Verified 10/16/19 13:52) Home Medications: multivitamin Past Medical History - Social History Chew tobacco use (# tins/day): No Frequency of alcohol use: None Drug Abuse: None - Past Medical History Cardiac Medical History: Reports: Hx Congestive Heart Failure, Hx Heart Attack - 1993, Hx Hypercholesterolemia, Hx Hypertension Pulmonary Medical History: Reports: Hx Asthma, Hx COPD Neurological Medical History: Reports: Hx Cerebrovascular Accident Renal/ Medical History: Denies: Hx Peritoneal Dialysis GI Medical History: Reports: Hx Gastroesophageal Reflux Disease, Hx Colonoscopy Musculoskeltal Medical History: Reports Hx Arthritis, Reports Hx Musculoskeletal Trauma Traumatic Medical History: Reports: Hx Fractures - Left forearm Past Surgical History: Reports: Hx Adenoidectomy, Hx Breast Surgery - Lumpectomy right breast, Hx Hysterectomy, Hx Oral Surgery - [place] teeth, Hx Tonsillectomy - Immunizations Hx Diphtheria, Pertussis, Tetanus Vaccination: Yes Physical Exam - Vital signs Vitals: Temp Pulse Resp BP Pulse Ox 98.6 F 84 17 150/72 H 97 03/28/20 22:14 03/28/20 22:14 03/28/20 22:14 03/28/20 22:14 03/28/20 22:14 Course - Vital Signs Vital signs: Temp Pulse Resp BP Pulse Ox 98.6 F 84 17 150/72 H 97 03/28/20 22:14 03/28/20 22:14 03/28/20 22:14 03/28/20 22:14 03/28/20 22:14
--- NOTE | 2020-03-28 23:41 | RADIOLOGY REPORT (SQ) ---
CLINICAL HISTORY: dizzy COMPARISON: None. TECHNIQUE: CT HEAD WITHOUT IV CONTRAST on 03/28/2020 10:15 PM TRAFFIC CONTROL TECHNICIAN This exam was performed according to our departmental dose-optimization program, which includes automated exposure control, adjustment of the mA and/or kV according to patient size and/or use of iterative reconstruction technique. FINDINGS: There is no acute hemorrhage, mass effect or midline shift. Sandoval-white differentiation is preserved. There is no hydrocephalus. There is no significant volume loss for age. The calvarium is intact. Orbits and globes are unremarkable. The paranasal sinuses are clear. Mastoid air cells are clear. IMPRESSION: No acute intracranial findings.
--- NOTE | 2020-03-28 23:41 | RADIOLOGY REPORT (SQ) ---
CLINICAL HISTORY: chest pain COMPARISON: 05/15/2018. TECHNIQUE: XR CHEST 1 VIEW 03/28/2020 10:15 PM VP PRODUCTION FINDINGS: Cardiac silhouette is normal in size. Lungs are clear without consolidation, atelectasis, mass or edema. There is no pleural effusion. There is no pneumothorax. There are no acute osseous findings. IMPRESSION: Clear lungs.
[2020-03-29 02:41] LABS: ABSOLUTE BASOPHILS # (AUTO) 0.1 10^3/uL (0.0-0.2); ABSOLUTE EOSINOPHILS # (AUTO) 0.2 10^3/uL (0.0-0.6); ABSOLUTE LYMPHOCYTES (AUTO) 1.8 10^3/uL (0.5-4.7); ABSOLUTE MONOCYTES (AUTO) 0.6 10^3/uL (0.1-1.4); ABSOLUTE NEUT (AUTO) 4.4 10^3/uL (1.7-8.2); BASOPHILS % (AUTO) 0.8 % (0-2); EOSINOPHILS % (AUTO) 2.4 % (0-6); HEMATOCRIT 37.8 % (36.0-47.0); HEMOGLOBIN 13.1 g/dL (12.0-15.5); LYMPHOCYTES % (AUTO) 25.3 % (13-45); MEAN CORPUSCULAR HEMOGLOBIN 29.8 pg (27.0-33.4); MEAN CORPUSCULAR HGB CONC 34.5 g/dL (32.0-36.0); MEAN CORPUSCULAR VOLUME 86 fl (80-97); MONOCYTES % (AUTO) 8.8 % (3-13); PLATELET COUNT 275 10^3/uL (150-450); RED BLOOD COUNT 4.38 10^6/uL (3.72-5.28); SEGMENTED NEUTROPHILS % (AUTO) 62.7 % (42-78); TOTAL CELLS COUNTED % (AUTO) 100 %; WHITE BLOOD COUNT 7.1 10^3/uL (4.0-10.5)
[2020-03-29 02:48] LABS: ALBUMIN 3.9 g/dL (3.5-5.0); ALKALINE PHOSPHATASE 101 U/L (38-126); ANION GAP 7 (5-19); ASPARTATE AMINO TRANSFERASE 23 U/L (14-36); BILIRUBIN,DIRECT 0.2 mg/dL (0.0-0.4); BILIRUBIN,TOTAL 0.6 mg/dL (0.2-1.3); BLOOD UREA NITROGEN 18 mg/dL (7-20); CALCIUM 8.9 mg/dL (8.4-10.2); CARBON DIOXIDE 27 mmol/L (22-30); CHLORIDE 107 mmol/L (98-107); GLUCOSE 100 mg/dL (75-110); POTASSIUM 4.1 mmol/L (3.6-5.0); TOTAL PROTEIN 7.1 g/dL (6.3-8.2)
--- NOTE | 2020-03-29 04:45 | ER Document Report ---
ED General - General Chief Complaint: Headache Stated Complaint: GERD/FEELING UNEASY Time Seen by Provider: 03/28/20 22:09 Mode of Arrival: Wheelchair Notes: Patient is a 69-year-old female who presents emergency department for head pressure and it on "uneasy feeling in her chest." States that she has had this for the past couple of days. She took 4 baby aspirin prior to coming to the emergency department. States that she does feel better after that. Patient reports that she does not have any heat in her house. Patient reported to the nurse, "I was not going to come in, but I did not want to feel like at home and my heater be out. So I just would be cold to." Patient reports that she is behind on her heating bill. Patient has history of a stroke in the past. Denies any new weakness. TRAVEL OUTSIDE OF THE [place] IN LAST 30 DAYS: No - Related Data Allergies/Adverse Reactions: amyl nitrite Allergy (Verified 10/16/19 13:52) Iodinated Contrast Media Allergy (Verified 10/16/19 13:52) sulfite Allergy (Verified 10/16/19 13:52) Home Medications: multivitamin Past Medical History - General Information source: Patient - Social History Smoking Status: Never Smoker Chew tobacco use (# tins/day): No Frequency of alcohol use: None Drug Abuse: None Family History: Reviewed & Not Pertinent - Past Medical History Cardiac Medical History: Reports: Hx Congestive Heart Failure, Hx Heart Attack - 1993, Hx Hypercholesterolemia, Hx Hypertension Pulmonary Medical History: Reports: Hx Asthma, Hx COPD Neurological Medical History: Reports: Hx Cerebrovascular Accident Renal/ Medical History: Denies: Hx Peritoneal Dialysis GI Medical History: Reports: Hx Gastroesophageal Reflux Disease, Hx Colonoscopy Musculoskeletal Medical History: Reports Hx Arthritis, Reports Hx Musculoskeletal Trauma Traumatic Medical History: Reports: Hx Fractures - Left forearm Past Surgical History: Reports: Hx Adenoidectomy, Hx Breast Surgery - Lumpectomy right breast, Hx Hysterectomy, Hx Oral Surgery - [place] teeth, Hx Tonsillectomy - Immunizations Hx Diphtheria, Pertussis, Tetanus Vaccination: Yes Review of Systems - Review of Systems Notes: REVIEW OF SYSTEMS: CONSTITUTIONAL : Denies recent illness. Denies recent unintentional weight loss. Denies fever, chills, or sweats. EENT: Denies eye, ear, throat, or mouth pain, discharge, or symptoms. Denies nasal or sinus congestion. CARDIOVASCULAR: See HPI. RESPIRATORY: Denies shortness of breath, cough, congestion, difficulty breathing, or wheezing. GASTROINTESTINAL: Denies nausea, vomiting, and diarrhea. Denies abdominal pain. Denies constipation. GENITOURINARY: Denies difficulty urinating, burning, blood in urine, urgency or frequency. MUSCULOSKELETAL: Denies neck and back pain. Denies joint pain or swelling. SKIN: Denies rash, itchiness, or lesions HEMATOLOGIC : Denies easy bruising or bleeding. LYMPHATIC: Denies swollen, painful, enlarged glands. NEUROLOGICAL: Denies no numbness or tingling denies weakness. Denies altered mental status. Denies alteration in speech. See HPI. PSYCHIATRIC: Denies stress, anxiety, alteration in sleep patterns, or depression. All other systems reviewed and negative. Physical Exam - Vital signs Vitals: Temp Pulse Resp BP Pulse Ox 98.6 F 84 17 150/72 H 97 03/28/20 22:14 03/28/20 22:14 03/28/20 22:14 03/28/20 22:14 03/28/20 22:14 - Notes Notes: PHYSICAL EXAMINATION: GENERAL: Appears well, healthy, well-nourished, no acute distress. HEAD: Normocephalic, atraumatic. EYES: PERRL, conjunctiva normal, all extraocular movements intact, sclera nonicteric ENT: Moist mucous membranes. NECK: Supple, no noticeable swelling, redness, rash. Normal range of motion. LUNGS: Equal breath sounds bilaterally and clear to auscultation. No wheezes rales or rhonchi. CARDIOVASCULAR: S1-S2, regular rate, regular rhythm. Radial pulses 2+, normal. ABDOMEN: Normoactive bowel sounds. Soft, nontender, no guarding, no rebound tenderness, and no masses palpated. EXTREMITIES: Normal strength and range of motion, no pitting or edema. No cya nosis. NEUROLOGICAL: Moves all extremities upon command. Strength 5/5 in all extremities. PSYCH: Normal mood, normal affect. SKIN: Warm, dry. No rash, lesions, ulcerations noted. Normal skin turgor. Course - Re-evaluation Re-evalutation: 03/29/20 10:52 CT of the head is unremarkable. Chest x-ray is also unremarkable. Hematology is unremarkable. Chemistries are also unremarkable. Initial Troponin is negative. Placed a case assistant consult, as the patient does not have a primary care provider, but does have Medicare. 03/29/20 07:31 Second troponin is unremarkable. Patient will go home. Will order the patient some Pepcid. Follow-up precautions were given. Verbal discharge instructions were given to the patient. They verbalized understanding. They are stable for discharge. - Vital Signs Vital signs: Temp Pulse Resp BP Pulse Ox 97.3 F 84 16 174/102 H 94 03/29/20 07:47 03/28/20 22:14 03/29/20 07:47 03/29/20 07:47 03/29/20 07:47 - Laboratory Results Result Diagrams: 03/29/20 02:20 03/29/20 02:20 Critical Laboratory Results Reviewed: No Critical Results - Radiology Results Critical Radiology Results Reviewed: No Critical Results - EKG Interpretation by Me Additional EKG results interpreted by me: Sinus Rhythm. Rate 88. NV 145; QRS 74; QT 376; QTc 455. No ST elevations or depressions noted. Discharge - Discharge Clinical Impression: Chest pain Qualifiers: Chest pain type: unspecified Qualified Code(s): R07.9 - Chest pain, unspecified Condition: Stable Disposition: HOME, SELF-CARE Additional Instructions: You are seen today in the emergency department for an uneasy feeling in your head and your chest. Your work-up is normal. Case management will be in touch with you in regards to your heat being out. Until then, wrapped up in warm blankets. Follow-up with a regular doctor, or establish a regular doctor. Call your insurance company and ask them who your primary care provider will be. Prescriptions: Famotidine [Pepcid 20 mg Tablet] 20 mg PO BID #12 tablet
[2020-03-29] MEDS ORDERED: FAMOTIDINE 20 MG TABLET PO ONE (07:35)
[2020-03-29] MEDS ORDERED: ACETAMINOPHEN 325 MG TABLET PO ONE (07:35)
[2020-03-29 08:03] VITALS: BP 174/102
--- NOTE | 2020-03-29 09:30 | EKG REPORT ---
SEVERITY:- NORMAL ECG - SINUS RHYTHM : Confirmed by: Ilan Arguello MD 29-Mar-2020 09:29:30
== END 2020-03-29 07:47 | disposition home or self-care (01) ==
LOC: ER 21:51
DX: R07.9 Chest pain, unspecified (principal); R51.9 Headache, unspecified; K21.9 Gastro-esophageal reflux disease without esophagitis; Z88.2 Allergy status to sulfonamides; Z88.8 Allergy status to other drugs, medicaments and biological substances; I50.9 Heart failure, unspecified; I11.0 Hypertensive heart disease with heart failure; J44.9 Chronic obstructive pulmonary disease, unspecified; Z79.899 Other long term (current) drug therapy
CPT/HCPCS: 93005; 99285; 36415; 85025; 80053; 84484; 71045; 70450; 93010; A9270

== ENCOUNTER 2020-04-28 20:47 | Emergency (ER) | payer MEDICARE, MEDICAID ==
[2020-04-28 21:10] VITALS: BP 129/72
--- NOTE | 2020-04-28 21:31 | ER Document Report ---
ED Medical Screen (RME) - General Chief Complaint: Urinary Problem Stated Complaint: URINE ISSUES BLURRINESS Time Seen by Provider: 04/28/20 21:12 TRAVEL OUTSIDE OF THE [place] IN LAST 30 DAYS: No - HPI Notes: 04/28/20 21:27 69-year-old female with a history of a CVA in June 2019, hypertension, CHF presents to the emergency room for 4 days of blurred vision, headache and nausea she states that was the preliminary symptoms to her stroke in June 2019. Patient also reports she has had chest heaviness for the last 4 days that radiates down her left arm, neck. Patient also reports shortness of breath c oncurrently with her chest heaviness. Denies any vomiting, abdominal pain. Patient also reports she is had urinary retention, states she has not voided in the last 9 hours, states she also has been limiting her p.o. intake.. States that she has tried twice to use the bathroom without any urination. Patient reports she did have an FL back in 1993. Eating and drinking without any issues. I have greeted and performed a rapid initial assessment of this patient. A comprehensive ED assessment and evaluation of the patient, analysis of test results and completion of the medical decision making process will be conducted by additional ED providers. PHYSICAL EXAMINATION: GENERAL: Chronically ill, obese and in no acute distress. HEAD: Atraumatic, normocephalic. EYES: Pupils equal round extraocular movements intact, conjunctiva are normal. NECK: Normal range of motion CV: s1, s2 regular LUNGS: No respiratory distress Musculoskeletal: Normal range of motion. Dental Ceramist Assistant +2 bilaterally equally. Strength 5 out of 5 in upper extremities. NEUROLOGICAL: Normal speech, normal gait. Tongue midline. Face symmetrical SKIN: Warm, Dry, normal turgor, no rashes or lesions noted. The patient was evaluated during a global COVID-19 pandemic and that diagnosis was suspected/considered upon their initial presentation. Their evaluation, treatment and testing was consistent with current guidelines for patients who present with complaints or symptoms and may be related to COVID-19. - Related Data Allergies/Adverse Reactions: amyl nitrite Allergy (Verified 10/16/19 13:52) Iodinated Contrast Media Allergy (Verified 10/16/19 13:52) sulfite Allergy (Verified 10/16/19 13:52) Past Medical History - Past Medical History Cardiac Medical History: Reports: Hx Congestive Heart Failure, Hx Heart Attack - 1993, Hx Hypercholesterolemia, Hx Hypertension Pulmonary Medical History: Reports: Hx Asthma, Hx COPD Neurological Medical History: Reports: Hx Cerebrovascular Accident Renal/ Medical History: Denies: Hx Peritoneal Dialysis GI Medical History: Reports: Hx Gastroesophageal Reflux Disease, Hx Colonoscopy Musculoskeltal Medical History: Reports Hx Arthritis, Reports Hx Musculoskeletal Trauma Traumatic Medical History: Reports: Hx Fractures - Left forearm Past Surgical History: Reports: Hx Adenoidectomy, Hx Breast Surgery - Lumpectomy right breast, Hx Hysterectomy, Hx Oral Surgery - [place] teeth, Hx Tonsillectomy - Immunizations Hx Diphtheria, Pertussis, Tetanus Vaccination: Yes Physical Exam - Vital signs Vitals: Temp Pulse Resp BP Pulse Ox 98.2 F 92 17 129/72 H 94 04/28/20 21:07 04/28/20 21:07 04/28/20 21:07 04/28/20 21:07 04/28/20 21:07 Course - Vital Signs Vital signs: Temp Pulse Resp BP Pulse Ox 98.2 F 92 17 129/72 H 94 04/28/20 21:07 04/28/20 21:07 04/28/20 21:07 04/28/20 21:07 04/28/20 21:07
--- NOTE | 2020-04-28 21:54 | RADIOLOGY REPORT (SQ) ---
EXAM DESCRIPTION: XR CHEST 1 VIEW COMPLETED DATE/TME: 04/28/2020 21:34 CLINICAL HISTORY: 69 years, Female, blurred vision,[place], similar s/s to cva in 06/2019 COMPARISON: Chest x-ray 03/28/2020 TECHNIQUE: Portable chest x-ray FINDINGS: Mild cardiomegaly. Mildly ectatic aorta without suspicious mediastinal widening. Mild blunting of left lateral costophrenic angle possibly representing small atelectasis or effusion. Otherwise no significant acute findings in chest. IMPRESSION: Nonspecific small left pleural-parenchymal abnormality.
--- NOTE | 2020-04-28 21:59 | RADIOLOGY REPORT (SQ) ---
EXAM DESCRIPTION: CT HEAD WITHOUT IV CONTRAST COMPLETED DATE/TME: 04/28/2020 21:39 CLINICAL HISTORY: 69 years, Female, blurred vision,[place], similar s/s to cva in 06/2019 COMPARISON: CT 03/28/2020 TECHNIQUE: Axial images without IV contrast. Sagittal coronal reconstruction. Images stored on PACS. All CT scanners at this facility use dose modulation, iterative reconstruction, and/or weight based dosing when appropriate to reduce radiation dose to as low as reasonably achievable (ALARA). FINDINGS: [id number]-[id number] cardiomegaly. Transverse diameter of the anterior third ventricle is 10 mm. Cortical sulci less prominent associated high slices of the brain. No suspicious focal intra-axial or extra-axial abnormalities. Vascular calcifications are present. Paranasal sinuses, mastoid air cells and bony calvarium are unremarkable. IMPRESSION: 1. No change in appearance of chest since 03/28/2020 and no acute findings. 2. Ventricles mildly larger compared to cortical sulci. Rule out NPH.
[2020-04-28 23:08] LABS: APPEARANCE,URINE SLIGHTLY-CLOUDY; BILIRUBIN,URINE NEGATIVE (NEGATIVE); COLOR,URINE YELLOW; GLUCOSE, URINE NEGATIVE (NEGATIVE); KETONES,URINE NEGATIVE (NEGATIVE); LEUKOCYTE ESTERASE,URINE LARGE (NEGATIVE); NITRITE,URINE NEGATIVE (NEGATIVE); PROTEIN,URINE 30 mg/dL (NEGATIVE); URINE SPECIFIC GRAVITY 1.025
[2020-04-28 23:18] LABS: ABSOLUTE BASOPHILS # (AUTO) 0.1 10^3/uL (0.0-0.2); ABSOLUTE EOSINOPHILS # (AUTO) 0.2 10^3/uL (0.0-0.6); ABSOLUTE LYMPHOCYTES (AUTO) 1.6 10^3/uL (0.5-4.7); ABSOLUTE MONOCYTES (AUTO) 0.5 10^3/uL (0.1-1.4); BASOPHILS % (AUTO) 0.9 % (0-2); EOSINOPHILS % (AUTO) 3.6 % (0-6); HEMATOCRIT 35.1 % (36.0-47.0); HEMOGLOBIN 11.9 g/dL (12.0-15.5); LYMPHOCYTES % (AUTO) 24.8 % (13-45); MEAN CORPUSCULAR HEMOGLOBIN 30.4 pg (27.0-33.4); MEAN CORPUSCULAR VOLUME 90 fl (80-97); PLATELET COUNT 287 10^3/uL (150-450); RED BLOOD COUNT 3.92 10^6/uL (3.72-5.28); RED CELL DISTRIBUTION WIDTH 13.6 % (11.5-14.0); SEGMENTED NEUTROPHILS % (AUTO) 62.7 % (42-78); TOTAL CELLS COUNTED % (AUTO) 100 %; WHITE BLOOD COUNT 6.4 10^3/uL (4.0-10.5)
[2020-04-28 23:31] LABS: ALBUMIN 3.6 g/dL (3.5-5.0); ALKALINE PHOSPHATASE 94 U/L (38-126); ANION GAP 7 (5-19); ASPARTATE AMINO TRANSFERASE 24 U/L (14-36); BILIRUBIN,DIRECT 0.1 mg/dL (0.0-0.4); BILIRUBIN,TOTAL 0.3 mg/dL (0.2-1.3); BLOOD UREA NITROGEN 16 mg/dL (7-20); CALCIUM 8.6 mg/dL (8.4-10.2); CARBON DIOXIDE 26 mmol/L (22-30); CHLORIDE 108 mmol/L (98-107); GLUCOSE 140 mg/dL (75-110); POTASSIUM 3.5 mmol/L (3.6-5.0); TOTAL PROTEIN 6.6 g/dL (6.3-8.2)
[2020-04-28 23:44] LABS: NT PRO BNP 243 pg/mL (<125)
[2020-04-28 23:46] LABS: TROPONIN I < 0.012 ng/mL
[2020-04-29] MEDS ORDERED: LIDOCAINE 1% INJ-PF (10 MG/ML) 30 ML SDV IM ONE (00:32)
[2020-04-29] MEDS ORDERED: CEFTRIAXONE INJ 1000 MG VIAL IM ONE (00:32)
--- NOTE | 2020-04-29 00:35 | ER Document Report ---
ED GI/ - General Chief Complaint: Urinary Problem Stated Complaint: URINE ISSUES BLURRINESS Time Seen by Provider: 04/28/20 21:12 Primary Care Provider: TRISTON CROUCH DPM [ACTIVE STAFF] - Follow up as needed RODRIGO SIERRA MD [COMMUNITY BASED STAFF] - Follow up as needed CHRIS FRYE MD [ACTIVE STAFF] - Follow up as needed Mode of Arrival: Ambulatory Information source: Patient Notes: 69-year-old female with a history of a CVA in June 2019, hypertension, CHF presents to the emergency room for 4 days of blurred vision, headache and nausea she states that was the preliminary symptoms to her stroke in June 2019. Patient also reports she has had chest heaviness for the last 4 days that radiates down her left arm, neck. Patient also reports shortness of breath concurrently with her chest heaviness. Denies any vomiting, abdominal pain. Patient also reports she is had urinary retention, states she has not voided in the last 9 hours, states she also has been limiting her p.o. intake.. States that she has tried twice to use the bathroom without any urination. Patient reports she did have an OK back in 1993. Eating and drinking without any issu es. I have greeted and performed a rapid initial assessment of this patient. A comprehensive ED assessment and evaluation of the patient, analysis of test results and completion of the medical decision making process will be conducted by additional ED providers. TRAVEL OUTSIDE OF THE [place] IN LAST 30 DAYS: No - Related Data Allergies/Adverse Reactions: amyl nitrite Allergy (Verified 10/16/19 13:52) Iodinated Contrast Media Allergy (Verified 10/16/19 13:52) sulfite Allergy (Verified 10/16/19 13:52) Past Medical History - General Information source: Patient - Social History Smoking Status: Never Smoker Frequency of alcohol use: None Drug Abuse: None Family History: Reviewed & Not Pertinent - Past Medical History Cardiac Medical History: Reports: Hx Congestive Heart Failure, Hx Heart Attack - 1993, Hx Hypercholesterolemia, Hx Hypertension Pulmonary Medical History: Reports: Hx Asthma, Hx COPD Neurological Medical History: Reports: Hx Cerebrovascular Accident Renal/ Medical History: Denies: Hx Peritoneal Dialysis GI Medical History: Reports: Hx Gastroesophageal Reflux Disease, Hx Colonoscopy Musculoskeletal Medical History: Reports Hx Arthritis, Reports Hx Muscu loskeletal Trauma Traumatic Medical History: Reports: Hx Fractures - Left forearm Past Surgical History: Reports: Hx Adenoidectomy, Hx Breast Surgery - Lumpectomy right breast, Hx Hysterectomy, Hx Oral Surgery - [place] teeth, Hx Tonsillectomy - Immunizations Hx Diphtheria, Pertussis, Tetanus Vaccination: Yes Review of Systems - Review of Systems Constitutional: See HPI EENT: See HPI Genitourinary: See HPI -: Yes All other systems reviewed and negative Physical Exam - Vital signs Vitals: Temp Pulse Resp BP Pulse Ox 98.2 F 92 17 129/72 H 94 04/28/20 21:07 04/28/20 21:07 04/28/20 21:07 04/28/20 21:07 04/28/20 21:07 - Notes Notes: PHYSICAL EXAMINATION: GENERAL: Well-appearing, well-nourished and in no acute distress. HEAD: Atraumatic, normocephalic. EYES: Pupils equal round and reactive to light, extraocular movements intact, conjunctiva are normal. ENT: Nares patent, oropharynx clear without exudates. Moist mucous membranes. NECK: Normal range of motion, supple without lymphadenopathy LUNGS: Breath sounds clear to auscultation bilaterally and equal. No wheezes rales or rhonchi. HEART: Regular rate and rhythm without murmurs ABDOMEN: Soft, nontender, nondistended abdomen. No guarding, no rebound. No masses appreciated. Female : deferred Musculoskeletal: Normal range of motion, no pitting or edema. No cyanosis. NEUROLOGICAL: Cranial nerves grossly intact. Normal speech. Normal sensory, motor exams PSYCH: Normal mood, normal affect. SKIN: Warm, Dry, normal turgor, no rashes or lesions noted. Course - Re-evaluation Re-evalutation: Patient appears well, nontoxic, laboratory investigations today grossly unremarkable. Urinary tract infection evident on urinalysis. CT of the head shows no acute findings. Chest x-ray unremarkable. Patient has no focal neurological deficits. Patient states she cannot afford antibiotic for urinary tract infection at this time, she also does not have a vehicle or a way to get to the pharmacy. We will give her a dose of IM Rocephin and to do a urine culture. I told her to call the hospital on Monday to get her culture results, she does not have a working phone so we cannot call her. The patient's emergency department workup and current diagnosis were explained to the patient and or family. Follow-up instructions were provided. Medications if prescribed were discussed. Instructions for when to return to the emergency department including specific worrisome symptoms were discussed with the patient and/or family. - Vital Signs Vital signs: Temp Pulse Resp BP Pulse Ox 98.2 F 92 17 129/72 H 94 04/28/20 21:07 04/28/20 21:07 04/28/20 21:07 04/28/20 21:07 04/28/20 21:07 - Laboratory Results Result Diagrams: 04/28/20 23:00 04/28/20 23:00 Laboratory Results Interpreted: 04/28/20 04/28/20 04/28/20 22:10 23:00 23:00 Hgb 11.9 L Hct 35.1 L Potassium 3.5 L Chloride 108 H Glucose 140 H NT-Pro-B Natriuret Pep Urine Protein 30 H Urine Urobilinogen 2.0 H Ur Leukocyte Esterase LARGE H Urine Ascorbic Acid 40 H 04/28/20 23:00 Hgb Hct Potassium Chloride Glucose NT-Pro-B Natriuret Pep 243 H Urine Protein Urine Urobilinogen Ur Leukocyte Esterase Urine Ascorbic Acid Critical Laboratory Results Reviewed: No Critical Results - Radiology Results Critical Radiology Results Reviewed: No Critical Results Discharge - Discharge Clinical Impression: UTI (urinary tract infection) Qualifiers: Urinary tract infection type: acute cystitis Hematuria presence: without hematu precious Qualified Code(s): N30.00 - Acute cystitis without hematuria Condition: Stable Disposition: HOME, SELF-CARE Additional Instructions: Please call on Monday to get the results of your urine culture since you do not have an active phone number. Please call one of the primary care providers that have given you a phone number for them please try to establish care with them. It is important at your age and with your medical history to have an active primary care physician. Referrals: CHRIS FRYE MD [ACTIVE STAFF] - Follow up as needed TRISTON CROUCH DPM [ACTIVE STAFF] - Follow up as needed RODRIGO SIERRA MD [COMMUNITY BASED STAFF] - Follow up as needed
== END 2020-04-29 01:31 | disposition home or self-care (01) ==
LOC: ER 20:47
DX: N30.00 Acute cystitis without hematuria (principal); H53.8 Other visual disturbances; R51.9 Headache, unspecified; R11.0 Nausea; R09.89 Other specified symptoms and signs involving the circulatory and respiratory systems; R33.9 Retention of urine, unspecified; J44.9 Chronic obstructive pulmonary disease, unspecified; R06.02 Shortness of breath; I10 Essential (primary) hypertension; I25.2 Old myocardial infarction; Z86.73 Personal history of transient ischemic attack (TIA), and cerebral infarction without residual deficits; Z91.041 Radiographic dye allergy status; Z88.8 Allergy status to other drugs, medicaments and biological substances
CPT/HCPCS: 99285; 96372; 36415; 85025; 80053; 81001; 84484; 83880; 71045; 70450; J3490; J0696